=== PATIENT | male | born 1950 | race Caucasian/White ===

== ENCOUNTER 2019-06-03 14:37 | Inpatient (IN) | payer MEDICARE ==
[~2019-06-03] VITALS: Ht 170.2 cm; Wt 74.1 kg
[~2019-06-03 14:37] MED LIST: DOXY100C2 PO; LISI-424 PO
[2019-06-03] MEDS ORDERED: SODIUM CHLORIDE FLUSH 10ML SYR IVF ONE (15:30)
[2019-06-03] MEDS ORDERED: SODIUM CHLORIDE 0.9% 1,000ML IVBOLUS ONE (15:30)
--- NOTE | 2019-06-03 15:47 | NUR ---
UOB TO BATHROOM BUT UNABLE TO GIVE URINE SAMPLE. IV FLUIDS INFUSING PER ORDERS.
[2019-06-03 15:54] LABS: BASOPHILS # (AUTO) 0.02 x10^3/uL (0-0.1); BASOPHILS % (AUTO) 0 % (0-1); EOSINOPHILS # (AUTO) 0.03 x10^3/uL (0-0.4); EOSINOPHILS % (AUTO) 0 % (1-7); LYMPHOCYTES # (AUTO) 1.08 x10^3/uL (1-3.4); LYMPHOCYTES % (AUTO) 14 % (22-44); MD NO; MEAN CORPUSCULAR HEMOGLOBIN 32.4 pg (27.5-34.5); MEAN CORPUSCULAR HGB CONC 33.5 g/dL (33.2-36.2); MEAN CORPUSCULAR VOLUME 96.9 fL (81-97); MEAN PLATELET VOLUME 7.6 fL (7.4-10.4); MONOCYTES # (AUTO) 0.91 x10^3/uL (0.2-0.8); MONOCYTES % (AUTO) 12 % (2-9); NEUTROPHILS # (AUTO) 5.85 x10^3/uL (1.8-6.8); NEUTROPHILS % (AUTO) 74 % (42-75); PLATELET COUNT 286 x10^3/uL (130-400); RED BLOOD COUNT 4.02 x10^6/uL (4.38-5.82); RED CELL DISTRIBUTION WIDTH 12.5 % (9.4-14.8)
[2019-06-03 16:03] LABS: ALANINE AMINOTRANSFERASE 15 U/L (12-78); ALBUMIN 3.9 g/dL (3.4-5.0); ANION GAP 12 mmol/L (5-15); CALCIUM 9.2 mg/dL (8.5-10.1); CHLORIDE 90 mmol/L (98-107); CREATININE 1.27 mg/dL (0.7-1.3)
[2019-06-03 16:05] LABS: ALKALINE PHOSPHATASE 71 U/L (45-117); BILIRUBIN,TOTAL 2.8 mg/dL (0.2-1.0); TOTAL PROTEIN 6.9 g/dL (6.4-8.2)
[2019-06-03] MEDS ORDERED: OMNIPAQUE 350 MG/ML, 100ML BOTTLE ONE (16:47)
--- NOTE | 2019-06-03 17:41 | NUR ---
PT AWARE OF CT RESULTS AND INTENTION TO ADMIT. IV ESTABLISHED OTHER ARM AT PT'S REQUEST
[2019-06-03] MEDS ORDERED: IBUPROFEN 600 MG TABLET PO PRN (18:30)
[2019-06-03] MEDS ORDERED: ACETAMINOPHEN 325 MG TABLET PO PRN (18:30)
[2019-06-03] MEDS ORDERED: GOLYTELY 4,000ML ORAL.SOL PO SCH (18:30)
[2019-06-03] MEDS ORDERED: TRAZODONE 50MG TABLET PO PRN (18:30)
[2019-06-03] MEDS ORDERED: ENALAPRILAT 1.25 MG/ML, 2ML IVPush PRN (18:30)
--- NOTE | 2019-06-03 18:45 | NUR ---
UOB WITHOUT ASSISTANCE. PT STATES HE HAD A SMALL AMOUNT OF LOOSE STOOL.
--- NOTE | 2019-06-03 18:49 | NUR ---
REPORT TO GURU LEON. PT TO BE TRANSPORTED TO FLOOR
[2019-06-03 19:29] VITALS: BP 154/81
[2019-06-03] MEDS: NEOMYCIN SULFATE 500 MG TABLET PO SCH (21:12)
[2019-06-03] MEDS: metroNIDAZOLE 500 MG TABLET PO SCH (21:12)
[2019-06-03] MEDS: SODIUM CHLORIDE 0.9% 1,000 ML IV SCH (21:13)
[2019-06-03] MEDS ORDERED: FLU VACC QS2019-20 36MOS UP/PF 0.5 ML IM-VACC ONE (22:00)
[2019-06-04] MEDS: metroNIDAZOLE 500 MG TABLET PO SCH ×3 (04:34→20:54)
[2019-06-04] MEDS: SODIUM CHLORIDE 0.9% 1,000 ML IV SCH ×2 (04:35→17:49)
[2019-06-04 05:05] VITALS: BP 144/68
[2019-06-04 05:16] LABS: BASOPHILS # (AUTO) 0.03 x10^3/uL (0-0.1); BASOPHILS % (AUTO) 0 % (0-1); EOSINOPHILS % (AUTO) 1 % (1-7); LYMPHOCYTES # (AUTO) 1.12 x10^3/uL (1-3.4); LYMPHOCYTES % (AUTO) 15 % (22-44); MD NO; MEAN CORPUSCULAR HEMOGLOBIN 33.5 pg (27.5-34.5); MEAN CORPUSCULAR HGB CONC 33.8 g/dL (33.2-36.2); MEAN CORPUSCULAR VOLUME 99.1 fL (81-97); MEAN PLATELET VOLUME 7.8 fL (7.4-10.4); MONOCYTES # (AUTO) 0.83 x10^3/uL (0.2-0.8); MONOCYTES % (AUTO) 11 % (2-9); NEUTROPHILS # (AUTO) 5.56 x10^3/uL (1.8-6.8); NEUTROPHILS % (AUTO) 73 % (42-75); PLATELET COUNT 226 x10^3/uL (130-400); RED BLOOD COUNT 3.45 x10^6/uL (4.38-5.82); RED CELL DISTRIBUTION WIDTH 12.6 % (9.4-14.8)
[2019-06-04 05:26] LABS: ANION GAP 8 mmol/L (5-15); CALCIUM 8.2 mg/dL (8.5-10.1); CHLORIDE 100 mmol/L (98-107); CREATININE 0.93 mg/dL (0.7-1.3)
[2019-06-04 07:45] VITALS: BP 145/86
[2019-06-04] MEDS: NEOMYCIN SULFATE 500 MG TABLET PO SCH ×3 (08:35→20:55)
[2019-06-04] MEDS: DOXYCYCLINE 100MG CAP PO SCH (08:35)
[2019-06-04] MEDS: LISINOPRIL 20 MG TABLET PO SCH (08:35)
[2019-06-04 12:56] VITALS: BP 158/79
[2019-06-04] MEDS: CALCIUM CARBONATE 500 MG TAB.CHEW PO PRN (17:46)
[2019-06-04 18:48] VITALS: BP 166/82
[2019-06-05] MEDS: metroNIDAZOLE 500 MG TABLET PO SCH (05:37)
[2019-06-05] MEDS: SODIUM CHLORIDE 0.9% 1,000 ML IV SCH ×3 (05:37→20:48)
[2019-06-05 07:03] LABS: BASOPHILS # (AUTO) 0.04 x10^3/uL (0-0.1); BASOPHILS % (AUTO) 1 % (0-1); EOSINOPHILS # (AUTO) 0.08 x10^3/uL (0-0.4); EOSINOPHILS % (AUTO) 1 % (1-7); LYMPHOCYTES # (AUTO) 0.83 x10^3/uL (1-3.4); LYMPHOCYTES % (AUTO) 13 % (22-44); MD NO; MEAN CORPUSCULAR HEMOGLOBIN 33.7 pg (27.5-34.5); MEAN CORPUSCULAR HGB CONC 34.1 g/dL (33.2-36.2); MEAN CORPUSCULAR VOLUME 98.9 fL (81-97); MONOCYTES # (AUTO) 0.51 x10^3/uL (0.2-0.8); MONOCYTES % (AUTO) 8 % (2-9); NEUTROPHILS # (AUTO) 4.91 x10^3/uL (1.8-6.8); NEUTROPHILS % (AUTO) 77 % (42-75); PLATELET COUNT 228 x10^3/uL (130-400); RED BLOOD COUNT 3.42 x10^6/uL (4.38-5.82); RED CELL DISTRIBUTION WIDTH 12.4 % (9.4-14.8)
[2019-06-05 07:14] LABS: ALBUMIN 3.1 g/dL (3.4-5.0); ANION GAP 11 mmol/L (5-15); CALCIUM 7.9 mg/dL (8.5-10.1); CHLORIDE 104 mmol/L (98-107)
[2019-06-05 08:21] VITALS: BP 151/77
[2019-06-05] MEDS: LISINOPRIL 20 MG TABLET PO SCH (08:40)
[2019-06-05] MEDS: DOXYCYCLINE 100MG CAP PO SCH (08:40)
[2019-06-05] MEDS ORDERED: FENTANYL PF 250 MCG/5ML ONE ×5 (10:43→14:56)
[2019-06-05] MEDS ORDERED: CEFOTETAN PMX 2GM/50ML 50 ML ONE (10:54)
[2019-06-05] MEDS ORDERED: PROPOFOL 10 MG/ML, 20ML ONE (10:55)
[2019-06-05] MEDS ORDERED: NEOSTIGMINE 1 MG/ML, 10ML ONE (10:55)
[2019-06-05] MEDS ORDERED: CEFAZOLIN 1,000 MG ONE (10:55)
[2019-06-05] MEDS ORDERED: GLYCOPYRROLATE 0.2MG/1ML, 5ML ONE (10:55)
[2019-06-05] MEDS ORDERED: ROCURONIUM 10MG/ML,5ML ONE (10:55)
[2019-06-05] MEDS ORDERED: OXYcodone 5 MG/5 ML ORAL.SOL UDC PO PRN (12:00)
[2019-06-05] MEDS ORDERED: hydrALAzine 20 MG/ML, 1ML IV PRN (12:00)
[2019-06-05] MEDS ORDERED: HYDROmorphone 2 MG/ML, 1ML IVPush PRN (12:00)
[2019-06-05] MEDS ORDERED: ONDANSETRON 2MG/ML, 2ML IV PRN (12:00)
[2019-06-05] MEDS ORDERED: MEPERIDINE/PF 25MG/ML,1ML IVPush PRN (12:00)
[2019-06-05] MEDS ORDERED: FENTANYL PF 100 MCG/2ML IV PRN (12:00)
[2019-06-05] MEDS ORDERED: LABETALOL 5MG/ML, 20ML IV PRN (12:00)
[2019-06-05] MEDS ORDERED: MORPHINE SULFATE 4 MG/ML, 1ML IVPush PRN (12:00)
[2019-06-05] MEDS ORDERED: PHENYLEPHRINE 10 MG/ML ONE (12:07)
[2019-06-05] MEDS ORDERED: SUCCINYLCHOLINE 20 MG/ML, 10ML ONE (12:07)
[2019-06-05] MEDS ORDERED: D5%-0.45NACL+KCL 20MEQ 1,000 ML IV SCH (15:55)
[2019-06-05 18:35] VITALS: BP 105/70
[2019-06-05] MEDS ORDERED: SODIUM CHLORIDE 0.9% 1,000ML IVBOLUS ONE (19:32)
[2019-06-05] MEDS ORDERED: SODIUM CHLORIDE 0.9% 1,000ML IVBOLUS SCH (20:00)
[2019-06-05] MEDS: MORPHINE SULFATE 4 MG/ML, 1ML IVPush PRN (20:53)
[2019-06-05] MEDS ORDERED: LABETALOL 5MG/ML, 20ML IVPush PRN (22:30)
[2019-06-05] MEDS ORDERED: LABETALOL 5 MG/ML SYR. (IV ONLY) IVPush PRN (23:00)
[2019-06-05] MEDS: ENOXAPARIN 40 MG/0.4 ML SQ SCH (23:05)
[2019-06-05] MEDS: METRONIDAZOLE PMX 500MG/100ML 100 ML IV SCH (23:07)
[2019-06-06] MEDS: MORPHINE SULFATE 4 MG/ML, 1ML IVPush PRN ×3 (00:17→23:45)
[2019-06-06] MEDS: CEFOTETAN PMX 1GM/50ML 50 ML IV SCH ×3 (00:19→23:45)
[2019-06-06 01:18] VITALS: BP 103/63
[2019-06-06] MEDS: SODIUM CHLORIDE 0.9% 1,000 ML IV SCH ×2 (01:50→20:20)
[2019-06-06 02:10] VITALS: BP 114/70
[2019-06-06] MEDS: METRONIDAZOLE PMX 500MG/100ML 100 ML IV SCH ×3 (05:08→22:12)
[2019-06-06 05:38] LABS: CHLORIDE 110 mmol/L (98-107)
[2019-06-06 05:44] LABS: BASOPHILS # (AUTO) 0.01 x10^3/uL (0-0.1); BASOPHILS % (AUTO) 0 % (0-1); EOSINOPHILS % (AUTO) 0 % (1-7); LYMPHOCYTES # (AUTO) 0.36 x10^3/uL (1-3.4); LYMPHOCYTES % (AUTO) 3 % (22-44); MD NO; MEAN CORPUSCULAR HEMOGLOBIN 33.7 pg (27.5-34.5); MEAN CORPUSCULAR HGB CONC 34.4 g/dL (33.2-36.2); MEAN PLATELET VOLUME 7.8 fL (7.4-10.4); MONOCYTES # (AUTO) 0.69 x10^3/uL (0.2-0.8); MONOCYTES % (AUTO) 5 % (2-9); NEUTROPHILS # (AUTO) 13.15 x10^3/uL (1.8-6.8); NEUTROPHILS % (AUTO) 93 % (42-75); PLATELET COUNT 284 x10^3/uL (130-400); RED BLOOD COUNT 3.51 x10^6/uL (4.38-5.82); RED CELL DISTRIBUTION WIDTH 12.8 % (9.4-14.8)
[2019-06-06 05:52] LABS: ANION GAP 9 mmol/L (5-15); CALCIUM 7.4 mg/dL (8.5-10.1)
[2019-06-06 07:08] VITALS: BP 119/73
[2019-06-06] MEDS: KETOROLAC 30 MG/1 ML IVPush SCH ×3 (09:19→20:18)
[2019-06-06] MEDS: LISINOPRIL 20 MG TABLET PO SCH (09:20)
[2019-06-06] MEDS: DOXYCYCLINE 100MG CAP PO SCH (09:20)
[2019-06-06 13:16] VITALS: BP 103/66
[2019-06-06 20:15] VITALS: BP 120/63
[2019-06-06] MEDS: ENOXAPARIN 40 MG/0.4 ML SQ SCH (20:18)
[2019-06-06] MEDS: D5%-0.45NACL+KCL 20MEQ 1,000 ML IV SCH (22:00)
[2019-06-07 01:18] VITALS: BP 106/60
[2019-06-07] MEDS: KETOROLAC 30 MG/1 ML IVPush SCH ×4 (02:30→19:52)
[2019-06-07] MEDS: D5%-0.45NACL+KCL 20MEQ 1,000 ML IV SCH ×3 (04:33→17:15)
[2019-06-07 04:44] LABS: BASOPHILS # (AUTO) 0.02 x10^3/uL (0-0.1); BASOPHILS % (AUTO) 0 % (0-1); EOSINOPHILS % (AUTO) 0 % (1-7); LYMPHOCYTES # (AUTO) 0.49 x10^3/uL (1-3.4); LYMPHOCYTES % (AUTO) 6 % (22-44); MD NO; MEAN CORPUSCULAR HEMOGLOBIN 33.3 pg (27.5-34.5); MEAN CORPUSCULAR HGB CONC 33.6 g/dL (33.2-36.2); MEAN PLATELET VOLUME 7.1 fL (7.4-10.4); MONOCYTES # (AUTO) 0.54 x10^3/uL (0.2-0.8); MONOCYTES % (AUTO) 6 % (2-9); NEUTROPHILS # (AUTO) 7.37 x10^3/uL (1.8-6.8); NEUTROPHILS % (AUTO) 88 % (42-75); PLATELET COUNT 180 x10^3/uL (130-400); RED BLOOD COUNT 2.68 x10^6/uL (4.38-5.82); RED CELL DISTRIBUTION WIDTH 12.8 % (9.4-14.8)
[2019-06-07 04:54] LABS: ANION GAP 3 mmol/L (5-15); CALCIUM 7.6 mg/dL (8.5-10.1); CHLORIDE 114 mmol/L (98-107); CREATININE 0.93 mg/dL (0.7-1.3)
[2019-06-07] MEDS: METRONIDAZOLE PMX 500MG/100ML 100 ML IV SCH ×3 (05:56→21:34)
[2019-06-07 07:00] VITALS: BP 143/66
[2019-06-07] MEDS: LISINOPRIL 20 MG TABLET PO SCH (08:59)
[2019-06-07] MEDS: DOXYCYCLINE 100MG CAP PO SCH (09:00)
[2019-06-07] MEDS ORDERED: OXYcodone/APAP 5/325MG TABLET PO PRN (11:00)
[2019-06-07] MEDS: SODIUM CHLORIDE 0.9% 1,000 ML IV SCH ×2 (11:46→21:33)
[2019-06-07] MEDS: CEFOTETAN PMX 1GM/50ML 50 ML IV SCH ×2 (11:47→23:44)
[2019-06-07 12:51] VITALS: BP 121/64
[2019-06-07] MEDS: CALCIUM CARBONATE 500 MG TAB.CHEW PO PRN ×2 (14:43→19:51)
[2019-06-07 18:31] VITALS: BP 148/80
[2019-06-07] MEDS: ENOXAPARIN 40 MG/0.4 ML SQ SCH (19:52)
[2019-06-07] MEDS: ONDANSETRON 2MG/ML, 2ML IVPush PRN (23:38)
[2019-06-07 23:51] VITALS: BP 141/78
[2019-06-08] MEDS: D5%-0.45NACL+KCL 20MEQ 1,000 ML IV SCH ×3 (00:40→21:33)
[2019-06-08 01:13] VITALS: BP 155/89
[2019-06-08] MEDS: KETOROLAC 30 MG/1 ML IVPush SCH ×4 (02:08→21:33)
[2019-06-08] MEDS: ONDANSETRON 2MG/ML, 2ML IVPush PRN (05:53)
[2019-06-08] MEDS: METRONIDAZOLE PMX 500MG/100ML 100 ML IV SCH ×3 (05:53→22:20)
[2019-06-08 07:27] VITALS: BP 162/90
[2019-06-08] MEDS: SODIUM CHLORIDE 0.9% 1,000 ML IV SCH ×2 (08:00→14:18)
[2019-06-08 08:26] LABS: MEAN CORPUSCULAR HEMOGLOBIN 32.9 pg (27.5-34.5); MEAN CORPUSCULAR HGB CONC 33.7 g/dL (33.2-36.2); MEAN CORPUSCULAR VOLUME 97.6 fL (81-97); MEAN PLATELET VOLUME 7.2 fL (7.4-10.4); PLATELET COUNT 231 x10^3/uL (130-400); RED BLOOD COUNT 2.99 x10^6/uL (4.38-5.82); RED CELL DISTRIBUTION WIDTH 12.9 % (9.4-14.8)
[2019-06-08 08:36] LABS: ANION GAP 10 mmol/L (5-15); CALCIUM 8.2 mg/dL (8.5-10.1); CHLORIDE 110 mmol/L (98-107); CREATININE 0.77 mg/dL (0.7-1.3)
[2019-06-08] MEDS: DOXYCYCLINE 100MG CAP PO SCH (08:49)
[2019-06-08] MEDS: LISINOPRIL 20 MG TABLET PO SCH (08:49)
[2019-06-08] MEDS ORDERED: PROCHLORPERAZINE 5 MG/ML, 2ML ONE (08:59)
[2019-06-08] MEDS: PROCHLORPERAZINE 5 MG/ML, 2ML IV PRN ×2 (09:02→22:21)
[2019-06-08 09:03] LABS: BASOPHILS # (AUTO) 0.01 x10^3/uL (0-0.1); BASOPHILS % (AUTO) 0 % (0-1); EOSINOPHILS # (AUTO) 0.01 x10^3/uL (0-0.4); EOSINOPHILS % (AUTO) 0 % (1-7); LYMPHOCYTES % (AUTO) 3 % (22-44); MD SCAN; MONOCYTES # (AUTO) 0.54 x10^3/uL (0.2-0.8); MONOCYTES % (AUTO) 5 % (2-9); NEUTROPHILS # (AUTO) 9.72 x10^3/uL (1.8-6.8); NEUTROPHILS % (AUTO) 92 % (42-75)
[2019-06-08] MEDS ORDERED: POTASSIUM CHLORIDE 40 MEQ in SODIUM CHLORIDE 0.9% 500 ML IV ONE (11:00)
[2019-06-08] MEDS: CEFOTETAN PMX 1GM/50ML 50 ML IV SCH ×2 (11:59→23:37)
[2019-06-08] MEDS: PANTOPRAZOLE 40 MG IV IVPush SCH ×2 (12:01→23:33)
[2019-06-08 14:31] VITALS: BP 131/76
[2019-06-08 19:13] VITALS: BP 150/83
[2019-06-08] MEDS: ENOXAPARIN 40 MG/0.4 ML SQ SCH (21:33)
[2019-06-08] MEDS: CALCIUM CARBONATE 500 MG TAB.CHEW PO PRN (22:20)
[2019-06-09] MEDS: SODIUM CHLORIDE 0.9% 1,000 ML IV SCH ×3 (00:08→15:49)
[2019-06-09 02:22] VITALS: BP 125/73
[2019-06-09] MEDS: KETOROLAC 30 MG/1 ML IVPush SCH ×4 (03:39→22:02)
[2019-06-09] MEDS: D5%-0.45NACL+KCL 20MEQ 1,000 ML IV SCH (05:31)
[2019-06-09] MEDS: METRONIDAZOLE PMX 500MG/100ML 100 ML IV SCH ×3 (05:31→22:02)
[2019-06-09 06:20] LABS: BASOPHILS % (AUTO) 0 % (0-1); EOSINOPHILS # (AUTO) 0.22 x10^3/uL (0-0.4); EOSINOPHILS % (AUTO) 3 % (1-7); LYMPHOCYTES # (AUTO) 0.71 x10^3/uL (1-3.4); LYMPHOCYTES % (AUTO) 10 % (22-44); MD NO; MEAN CORPUSCULAR HEMOGLOBIN 32.3 pg (27.5-34.5); MEAN CORPUSCULAR HGB CONC 33.3 g/dL (33.2-36.2); MEAN PLATELET VOLUME 7.3 fL (7.4-10.4); MONOCYTES # (AUTO) 0.61 x10^3/uL (0.2-0.8); MONOCYTES % (AUTO) 8 % (2-9); NEUTROPHILS # (AUTO) 5.72 x10^3/uL (1.8-6.8); NEUTROPHILS % (AUTO) 79 % (42-75); PLATELET COUNT 234 x10^3/uL (130-400); RED BLOOD COUNT 2.65 x10^6/uL (4.38-5.82); RED CELL DISTRIBUTION WIDTH 12.7 % (9.4-14.8)
[2019-06-09 06:31] LABS: ALANINE AMINOTRANSFERASE 6 U/L (12-78); ANION GAP 7 mmol/L (5-15); CHLORIDE 114 mmol/L (98-107)
[2019-06-09 06:34] LABS: ALKALINE PHOSPHATASE 36 U/L (45-117); BILIRUBIN,TOTAL 0.5 mg/dL (0.2-1.0); CREATININE 0.91 mg/dL (0.7-1.3); TOTAL PROTEIN 4.9 g/dL (6.4-8.2)
[2019-06-09 06:43] VITALS: BP 139/73
[2019-06-09] MEDS: LISINOPRIL 20 MG TABLET PO SCH (07:57)
[2019-06-09] MEDS: PANTOPRAZOLE 40 MG IV IVPush SCH (07:58)
[2019-06-09] MEDS: DOXYCYCLINE 100MG CAP PO SCH ×2 (07:58→08:01)
[2019-06-09] MEDS: CEFOTETAN PMX 1GM/50ML 50 ML IV SCH (12:19)
[2019-06-09 13:25] VITALS: BP 130/77
[2019-06-09 19:16] VITALS: BP 147/95
[2019-06-09] MEDS: ENOXAPARIN 40 MG/0.4 ML SQ SCH (22:02)
[2019-06-10] MEDS: PANTOPRAZOLE 40 MG IV IVPush SCH (00:09)
[2019-06-10] MEDS: CEFOTETAN PMX 1GM/50ML 50 ML IV SCH ×2 (00:10→12:10)
[2019-06-10] MEDS: SODIUM CHLORIDE 0.9% 1,000 ML IV SCH ×2 (01:40→09:48)
[2019-06-10 02:00] VITALS: BP 126/74
[2019-06-10 04:57] LABS: BASOPHILS # (AUTO) 0.05 x10^3/uL (0-0.1); BASOPHILS % (AUTO) 1 % (0-1); EOSINOPHILS # (AUTO) 0.22 x10^3/uL (0-0.4); EOSINOPHILS % (AUTO) 4 % (1-7); LYMPHOCYTES % (AUTO) 12 % (22-44); MD NO; MEAN CORPUSCULAR HEMOGLOBIN 32.9 pg (27.5-34.5); MEAN CORPUSCULAR HGB CONC 33.9 g/dL (33.2-36.2); MEAN CORPUSCULAR VOLUME 96.9 fL (81-97); MONOCYTES # (AUTO) 0.56 x10^3/uL (0.2-0.8); MONOCYTES % (AUTO) 10 % (2-9); NEUTROPHILS # (AUTO) 4.08 x10^3/uL (1.8-6.8); NEUTROPHILS % (AUTO) 73 % (42-75); PLATELET COUNT 210 x10^3/uL (130-400); RED CELL DISTRIBUTION WIDTH 12.6 % (9.4-14.8)
[2019-06-10] MEDS: KETOROLAC 30 MG/1 ML IVPush SCH ×3 (05:10→13:52)
[2019-06-10 05:22] LABS: CHLORIDE 113 mmol/L (98-107)
[2019-06-10] MEDS: METRONIDAZOLE PMX 500MG/100ML 100 ML IV SCH ×2 (05:33→13:52)
[2019-06-10 05:57] LABS: ANION GAP 7 mmol/L (5-15); CALCIUM 7.7 mg/dL (8.5-10.1); CREATININE 0.77 mg/dL (0.7-1.3)
[2019-06-10] MEDS ORDERED: POTASSIUM CHLORIDE 40 MEQ in SODIUM CHLORIDE 0.9% 500 ML IV ONE (06:30)
[2019-06-10] MEDS ORDERED: MAGNESIUM SULFATE PMX 2GM/50ML 50 ML IV ONE (06:30)
[2019-06-10 07:19] VITALS: BP 131/71
[2019-06-10] MEDS: LISINOPRIL 20 MG TABLET PO SCH (08:03)
[2019-06-10] MEDS: DOXYCYCLINE 100MG CAP PO SCH (08:03)
[2019-06-10] MEDS: CALCIUM CARBONATE 500 MG TAB.CHEW PO PRN (10:22)
[2019-06-10] MEDS ORDERED: OMEPRAZOLE 20 MG CAPSULE.DR PO SCH (11:30)
[2019-06-10] MEDS ORDERED: OMEP-110 PO (13:22)
[2019-06-10] MEDS ORDERED: OXYC1TAB7 PO (13:22)
[2019-06-10] MEDS ORDERED: FERR324T5 PO (13:24)
[2019-06-10 13:41] VITALS: BP 136/73
[2019-06-10 16:28] VITALS: BP 152/87
[2019-06-11] MEDS ORDERED: OMEPRAZOLE 20 MG CAPSULE.DR PO SCH (06:00)
== END 2019-06-10 17:00 | disposition home or self-care (01) | DRG 329 ==
LOC: ED 17:57 → EDIP 17:58 → ED 18:01 → 3N 19:19 → 4NE 06-05 17:16 → DCLOUNGE 06-10 16:44
PROVIDERS: ADMIT Family Medicine; ATTEND Family Medicine
PROC: 0DTF0ZZ Resection of Right Large Intestine, Open Approach (ICD-10-PCS; principal; 2019-06-05 15:00)
DX: C18.9 Malignant neoplasm of colon, unspecified (principal); N17.0 Acute kidney failure with tubular necrosis; E43 Unspecified severe protein-calorie malnutrition; K56.600 Partial intestinal obstruction, unspecified as to cause; R17 Unspecified jaundice; E87.1 Hypo-osmolality and hyponatremia; K56.7 Ileus, unspecified; D50.9 Iron deficiency anemia, unspecified; E86.0 Dehydration; G47.30 Sleep apnea, unspecified; K57.30 Diverticulosis of large intestine without perforation or abscess without bleeding; I10 Essential (primary) hypertension; K21.9 Gastro-esophageal reflux disease without esophagitis; L71.9 Rosacea, unspecified; Z80.0 Family history of malignant neoplasm of digestive organs; Z87.891 Personal history of nicotine dependence; Z88.0 Allergy status to penicillin; Z68.25 Body mass index [BMI] 25.0-25.9, adult; Z83.6 Family history of other diseases of the respiratory system
CPT/HCPCS: 36415; 74018; 74177; 80048; 80053; 82040; 83690; 83735; 85014; 85018; 85025; 86850; 86900; 88307; 90686; 93005; 99285; G0378; J0690; J1650; J1885; J2270; J2405; J2704; J2710; J3010; J3480; Q9967; C9113; J0330; J0780; J2370; J3475; J3490; J7030; J7040

== ENCOUNTER 2019-08-17 08:00 | Outpatient (CLI) | payer MEDICARE ==
[~2019-08-17 08:00] MED LIST changes: +FERR324T5 PO; +OMEP-110 PO; +OXYC1TAB7 PO
[2019-08-17] MEDS ORDERED: LOPE2CAP PO (09:27)
[2019-08-17] MEDS ORDERED: LISI-170 PO (09:27)
[2019-08-17] MEDS ORDERED: ATOR40TA78 PO (09:27)
[2019-08-17] MEDS ORDERED: FERR-46 PO (09:27)
[2019-08-17] MEDS ORDERED: DOXY100T PO (09:27)
== END 2019-08-17 23:59 | disposition home or self-care (01) ==
LOC: STAR 08:00
PROVIDERS: ATTEND Surgery
DX: Z01.818 Encounter for other preprocedural examination (principal); C19 Malignant neoplasm of rectosigmoid junction; I87.2 Venous insufficiency (chronic) (peripheral); R00.0 Tachycardia, unspecified
CPT/HCPCS: 93005

== ENCOUNTER 2019-08-26 09:45 | Day surgery (SDC) | payer MEDICARE ==
[~2019-08-26] VITALS: Ht 170.2 cm; Wt 66.1 kg
[~2019-08-26 09:45] MED LIST changes: +ATOR40TA78 PO; +DOXY100T PO; +FERR-46 PO; +LISI-170 PO; +LOPE2CAP PO
[2019-08-26] MEDS ORDERED: SODIUM CHLORIDE 0.9% 1,000 ML IV SCH (10:31)
[2019-08-26 10:49] VITALS: BP 133/82
[2019-08-26] MEDS ORDERED: VANCOMYCIN PMX 1GM/200ML 200 ML IV ONE (11:00)
[2019-08-26] MEDS ORDERED: LIDOCAINE 1%, 20ML ONE (11:46)
[2019-08-26] MEDS ORDERED: LIDOCAINE 1%, 10ML ONE (11:46)
[2019-08-26] MEDS ORDERED: FLUMAZENIL 0.1 MG/1 ML, 5ML ONE (12:00)
[2019-08-26] MEDS ORDERED: FENTANYL PF 100 MCG/2ML ONE (12:00)
[2019-08-26] MEDS ORDERED: NALOXONE 1 MG/ML, 2ML ONE (12:00)
[2019-08-26] MEDS ORDERED: MIDAZOLAM 1 MG/ML, 5ML ONE (12:00)
[2019-09-16] MEDS ORDERED: LORA-445 PO (08:32)
[2019-09-16] MEDS ORDERED: ONDA4TAB13 SL (08:33)
[2019-09-16] MEDS ORDERED: PANT40TA5 PO (08:33)
== END 2019-08-26 14:35 | disposition home or self-care (01) ==
LOC: OUT 09:45
PROVIDERS: ATTEND Surgery
DX: C18.9 Malignant neoplasm of colon, unspecified (principal); I10 Essential (primary) hypertension; E78.5 Hyperlipidemia, unspecified; F12.10 Cannabis abuse, uncomplicated; Z79.891 Long term (current) use of opiate analgesic; Z79.899 Other long term (current) drug therapy; Z87.891 Personal history of nicotine dependence; Z88.0 Allergy status to penicillin
CPT/HCPCS: 36561; 76937; 77001; 99156; 99157; C1788; C1894; J1642; J2250; J3010; J3370; J7030; J2310

== ENCOUNTER 2019-09-17 07:58 | Emergency (ER) | payer MEDICARE ==
[~2019-09-17] VITALS: Ht 170.2 cm; Wt 60.0 kg
[~2019-09-17 07:58] MED LIST changes: +LORA-445 PO; +ONDA4TAB13 SL; +PANT40TA5 PO
--- NOTE | 2019-09-17 08:33 | NUR ---
PER PT HE WAS DISCHARGED FROM HOSPITAL YESTERDAY, PT WITH RECENT ABD SX TO REMOVE CA, REQUIRING HOSPTIAL STAY, PT DISCHARGED HOME WITH NG TUBE IN PLACE AND HOME SUCTION. PT IS TO BE ON CONT SUCTION PER DC INSTRUCTIONS. PER PT THE SUCTION CANISTER BROKE AND WOULD NOT SUCTION, PT WAS TO HAVE HH RN COME OUT TODAY TO ASSIST PT, PT STATES HE CAME TO THE ER IN THE "MEAN TIME" BECAUSE HE NEEDED SUCTION
[2019-09-17 09:02] VITALS: BP 131/77
--- NOTE | 2019-09-17 09:39 | NUR ---
PT UNABLE TO RECALL WHAT COMPANY HIS SUCTION CANISTER IS SO THAT WE CAN CONTACT FOR HIM TO REPLACE BROKEN PART. HE IS ATTEMPTING TO CONTACT A NEIGHBOR TO ASSIST HIM IN GETTING THIS INFORMATION
== END 2019-09-17 13:41 ==
LOC: ED 12:30
DX: T85.518A Breakdown (mechanical) of other gastrointestinal prosthetic devices, implants and grafts, initial encounter (principal); Z87.891 Personal history of nicotine dependence
CPT/HCPCS: 99283